=== PATIENT | male | born 1990 | race African-American/Black ===

== ENCOUNTER 2022-06-30 06:06 | Emergency (ER) | payer SELFPAY ==
[2022-06-30 06:16] VITALS: BP 138/72; PULSE 81; RESP 18; TEMP 99; BMI 21.5
[2022-06-30] MEDS ORDERED: LACTATED RINGERS SOLUTION 1,000 ML/1,000 ML INFUS.BAG IV STA ×2 (07:28→09:04)
[2022-06-30] MEDS ORDERED: FAMOTIDINE 20 MG/50 ML IVPB 20 MG/50 ML MG IVPB ONE (07:29)
[2022-06-30] MEDS ORDERED: METOCLOPRAMIDE HCL INJECTION 10 MG/2 ML VIAL IVPB ONE (07:29)
[2022-06-30 08:21] LABS: BASO % 0.2 % (0-2.0); HEMATOCRIT 42.8 % (35.4-49); HEMOGLOBIN 14.6 GM/dL (11.7-16.9); LYMPH % 6.6 % (8-40); MCH 30.1 pg (25.7-33.7); MCHC 34.1 g/dl (32.0-35.9); MEAN CELL VOLUME 88.2 fl (80-96); MEAN PLT VOLUME 7.3 fl (7.5-11.1); MONO % 3.9 % (3.8-10.2); NEUT % 89.3 % (42.8-82.8); PLATELET COUNT 444 10^3/uL (134-434); RBC 4.85 M/mm3 (4.00-5.60)
[2022-06-30 08:48] LABS: ALBUMIN 4.5 g/dl (3.4-5.0); BLOOD UREA NITROGEN 15.7 mg/dL (7-18); CALCIUM 10.1 mg/dL (8.5-10.1); MAGNESIUM 2.1 mg/dL (1.8-2.4)
[2022-06-30 08:51] LABS: CREATININE 1.1 mg/dL (0.55-1.3)
[2022-06-30 08:53] LABS: BILIRUBIN,TOTAL 0.4 mg/dL (0.2-1); TOT PROT 8.6 g/dl (6.4-8.2)
[2022-06-30] MEDS ORDERED: ACETAMINOPHEN 1000 MG/100 ML BAG IVPB ONE (09:04)
[2022-06-30] MEDS ORDERED: cloNIDine HCL 0.1 MG TABLET PO ONE (09:17)
[2022-06-30] MEDS ORDERED: ACETAMINOPHEN INJECTION 100 ML IVPB ONE (09:17)
[2022-06-30] MEDS ORDERED: cloNIDine HCL 0.1 MG TABLET ONE (09:17)
[2022-06-30 10:51] LABS: URINE APPEARANCE CLEAR; URINE BILIRUBIN NEGATIVE (NEGATIVE); URINE COLOR YELLOW; URINE GLUCOSE (UA) NEGATIVE (NEGATIVE); URINE KETONE NEGATIVE (NEGATIVE); URINE LEUK ESTERASE NEGATIVE (NEGATIVE); URINE NITRITE NEGATIVE (NEGATIVE); URINE PROTEIN NEGATIVE (NEGATIVE); URINE UROBILINOGEN 0.2 mg/dL (0.2-1.0)
[2022-06-30 11:17] LABS: URINE BARBITURATES NEGATIVE (NEGATIVE)
[2022-06-30 11:18] LABS: COCAINE, UR NEGATIVE (NEGATIVE); PHENCYCLIDINE,URINE NEGATIVE (NEGATIVE); URINE BENZODIAZEPINES NEGATIVE (NEGATIVE)
[2022-06-30 13:09] LABS: METHADONE, UR POSITIVE (NEGATIVE); OPIATES, URI NEGATIVE (NEGATIVE)
[2022-07-01 19:10] LABS: URINE AMPHETAMINES NEGATIVE (NEGATIVE)
== END 2022-06-30 11:52 | disposition home or self-care (01) ==
LOC: JER 06:06
PROC: 3E0333Z Introduction of Anti-inflammatory into Peripheral Vein, Percutaneous Approach (ICD-10-PCS; principal; 2022-06-30)
PROC: 3E033GC Introduction of Other Therapeutic Substance into Peripheral Vein, Percutaneous Approach (ICD-10-PCS; 2022-06-30)
PROC: 3E0337Z Introduction of Electrolytic and Water Balance Substance into Peripheral Vein, Percutaneous Approach (ICD-10-PCS; 2022-06-30)
PROC: 3E0337Z Introduction of Electrolytic and Water Balance Substance into Peripheral Vein, Percutaneous Approach (ICD-10-PCS; 2022-06-30)
DX: F11.20 Opioid dependence, uncomplicated (principal); M54.6 Pain in thoracic spine; R11.2 Nausea with vomiting, unspecified
CPT/HCPCS: 36415; 71046-TC-FY; 80053; 80307; 81003; 83690; 83735; 85025; 99284-25